=== PATIENT | male | born 1955 | race Caucasian/White ===

== ENCOUNTER → 2023-06-25 08:02 | Outpatient (REF) | payer BC, SELFPAY | LOC: HWRAD 08:02 | PROVIDERS: ATTENDING PHYSICIAN Internal Medicine Endocrinology, Diabetes & Metabolism; FAMILY PHYSICIAN Internal Medicine | DX: E11.9 Type 2 diabetes mellitus without complications (principal) | CPT/HCPCS: 76536 ==

== ENCOUNTER 2023-07-08 17:22 | Emergency (ER) | payer BC, SELFPAY ==
[2023-07-08 17:28] VITALS: BP 187/99
[2023-07-08 18:24] LABS: Hematocrit 40.2 % (39.0-52.0); Hemoglobin 13.8 g/dL (13.0-18.0); Mean Corp Hgb Conc. 34.3 g/dL (33.0-37.0); Mean Corpuscular Hgb 29.6 pg (27.0-31.0); Mean Corpuscular Volume 86.3 fL (80.0-94.0); Mean Platelet Volume 9.7 fL (7.4-10.4); Platelet Count 204 10^3/uL (130-400); Red Blood Cell Count 4.66 10^6/uL (4.70-6.10); Red Cell Dist. Width 13.2 % (11.5-14.5); White Blood Cell Count 7.7 10^3/uL (4.8-10.8)
--- NOTE | 2023-07-08 18:39 | ED.GENMED ---
History of Present Illness
General
Chief Complaint: Cardiac Symptoms
Source: patient
Exam Limitations: none
Time Seen by Provider: 07/08/23 18:17
Nursing documentation reviewed up to this point in time: agreed with
Travel History
Have you had any contact with someone who has COVID-19?: No
Do you have any symptoms of coronavirus? Fever > 100 degrees, chills, cough, shortness of breath, sore throat, loss of taste or smell, muscle aches, or headache?: No
History of Present Illness
History of Present Illness:
67-year-old male presents to the ER for evaluation of chest pain. Patient reports he was snowblowing heavy snow on Sunday and felt great while doing that however later that night he felt some chest heaviness/tightness. He reports off-and-on for
the past week he has noticed his chest has felt intermittently tight but he denies any shortness of breath. He does feel little discomfort less tightness/heaviness in his chest with taking a deep breath. Today he was getting changed and noticed
that his chest look like it was at the incisional site of his bypass which she had in 2019. With this along with his intermittent chest heaviness this week he presented to the ER. He reports this does not feel like a chest pain. He
denies any associate nausea vomiting. No prior history of DVT PE. He is on Eliquis for afib.He has not missed a dose.
He denies any lower extremity swelling. He denies any recent trauma fever or chills.Currently pt denies shortness of breath. He feels a slight pressure/heaviness to center of chest with taking a deep breath.
Past History
Past History
ED Past Medical History: Arrthythmia, CAD, HTN, Hypercholesterolemia and IDDM
ED Past Surgical History: Appendectomy, Cardiac, Orthopedic, Tonsilectomy and Other (Retinal repair. Cataract surgery. Closed-loop bowel obstruction)
Social History
Tobacco: Non-smoker
Drug: None
Personal:
Living: with family
Employment: Employed
Family History
Family History: Other
Review of Systems
Review of Systems
All Other Systems: ROS reviewed and negative except as documented in HPI and ROS
Constitutional: Denies fever, fatigue or chills
EENT: Reports no symptoms
Respiratory: Denies cough, hemoptysis or trouble breathing
Cardiac: Reports other (Chest heaviness/tightness)
ABD/GI: Reports no symptoms; Denies abdominal pain, nausea or vomiting
Musculoskeletal: Reports no symptoms
Skin: Reports no symptoms
Neurological: Reports no symptoms
Psychiatric: Reports no symptoms
Phy Exam
General Physical Exam
General Presentation: no apparent distress
General age: appears stated age
General Skin: warm and dry
General Habitus: normal
General Mental: alert
General Hydration: appears well hydrated
Cardiovascular Exam
Cardiovascular Exam: regular rate/rhythm, no murmur and normal peripheral pulses
Pulmonary Exam
Pulmonary Exam: lungs clear, no respiratory distress and other (chest non tender old vertical incision to anterior chest no other deformity mild b/lGynecomastia)
Neurological Exam
Neurological Exam: alert and oriented x3
[place] Coma Scale
Eye Opening: Spontaneous
Verbal Response: Oriented
Motor Response: Obeys Commands
GCS Total Score: 15
Musculoskeletal Exam
Musculoskeletal Exam: full ROM
Skin Exam
Skin Exam: normal color and warm/dry
Psychiatric Exam
Psychiatric Exam: normal mood/affect
Course
Orders/Labs/Results
Orders:
Orders
07/08/23 17:23
EKG [Electrocardiogram (*1)] Urgent
Reason for Study: Chest Pain
EKG- Treatment ONCE
07/08/23 18:16
Complete Blood Count/No Diff Urgent
Comprehensive Metabolic Panel Urgent
Troponin I Urgent
07/08/23 18:38
Chest [CR Chest - 2 Views ] Urgent
Comment:
Reason For Exam: cp
07/08/23 19:07
DDimer [D-Dimer] Urgent
Abnormal Lab Results
07/08/23
18:16
RBC 4.66 L 10^6/uL
(4.70-6.10)
BUN 22 H mg/dl
(9-20)
Glucose 173 H mg/dl
(70-99)
07/08/23 18:16
07/08/23 18:16
Vital Signs
Initial and Last Documented VS:
Initial Vital Signs
Temp Pulse Resp BP Pulse Ox
97.6 F 73 17 187/99 99
07/08/23 17:28 07/08/23 17:28 07/08/23 17:28 07/08/23 17:28 07/08/23 17:28
Last Documented Vital Signs
Temp Pulse Resp BP Pulse Ox
97.6 F 66 16 123/45 97
07/08/23 17:28 07/08/23 21:00 07/08/23 21:00 07/08/23 21:00 07/08/23 19:09
Sales Enablement Specialist consulted with Physician
Sales Enablement Specialist consulted with physician?: Yes
Name of Physician Consulted: sylwia
MDM/Problems Addressed
Differential Diagnosis Includes:
not limited to: Muscular chest pain less likely ACS, less likely PE
MDM/Problems Addressed:
Patient is a 67-year-old male with past medical history of A-fib CAD bypass surgery insulin-dependent diabetes on Eliquis presented to the ER for evaluation. Patient was using a snowblower several days ago and was fine however after that noticed
chest soreness worse when he took a deep breath. Today he was looking his chest and thought it was move 'caved int.' PT had CABG yrs ago.
Pt presents awake alert in no acute distress. He denies any actual shortness of breath. He is nontachycardic nontachypneic nonhypoxic.
Patient has had symptoms off and on for the past several days, no acute findings on EKG and normal troponin. Patient less likely with PE as he is anticoagulated for A-fib and has a normal D-dimer. Patient reports he had 1 episode of A-fib since
having bypass surgery and pt is anticoagulated.
Pt however has been in NSR here in the ER. Pt in no acute distress work up un-remarkable. Likely musculoskeletal. Case discussed ED physician will DC home
*Radiology
Radiology exam reviewed: radiology read reviewed
*Pulse Oximetry
Patient hypoxic: no
*EKG
Interpreted by ED Provider?: Yes
Heart Rate: 75
Rate: normal
Rhythm: sinus
Ischemia: non-specific ST changes
*Critical Care Note
Total Time (30-74mins, 75-104mins- exclusive of procedures): Not Applicable
ED Attending Note
-
Portions of this chart may have been created with voice recognition software.� Occasional wrong word or��sound alike� substitutions may have occurred due to the inherent limitations of voice recognition software.
Discharge Plan
Departure
Patient Disposition: Home (Routine Discharge)
Date of Disposition: 07/08/23
Time of Disposition: 21:12
Patient with high blood pressure during this ER visit?: Yes
Condition: Fair
Covid-19: Not Applicable
Discharge Problem:
Chest pain
Instructions: Chest Pain PCP Follow Up, BLOOD PRESSURE
Prescriptions:
No Action
atorvastatin 40 MG tablet
40 mg PO QPM
dorzolamide-timolol (PF) [Cosopt (PF)] 1 EACH dropperette
1 drp BOTH EYES BID
brimonidine [Alphagan P] 10 ML drops
1 drp BOTH EYES BID
Patient Comments:
tafluprost (PF) [Zioptan (PF)] 1 EACH dropperette
1 ea BOTH EYES HS
multivitamin with folic acid [Tab-A-Jessica] 1 TABLET tablet
1 tab PO DAILY Qty: 0
Eliquis 5 MG tablet
5 mg PO BID Qty: 60 3RF
metformin 1,000 MG tablet
1,000 mg PO BID
cyclosporine [Restasis] 10 DROPS dropperette
1 drp BOTH EYES BID
insulin glargine [Lantus Solostar U-100 Insulin] 300 UNITS/3 ML insulin pen
20 units SC HS
metoprolol tartrate 50 MG tablet
100 mg PO HS
iyfwgdedqt-ayxqmbpzvglyb-xllh 1 TAB tablet
1 tab PO Q4HPRN PRN (Reason: severe headache/migraine) Qty: 8 0RF
ascorbic acid (vitamin C) [Vitamin C] 500 mg Tablet
500 mg PO DAILY
insulin lispro [Humalog U-100 Insulin] 100 unit/mL Solution
1 sliding scale dose SC MEALS
Patient Comments:
usually about 15 units
cholecalciferol (vitamin D3) [Vitamin D3] 125 mcg (5,000 unit) Tablet
125 mcg PO DAILY
vitamin E
1,000 units PO DAILY
Referrals:
Kevni Martinez DO [Family Provider] -
Activity Restrictions/Additional Instructions:
As discussed follow-up with family doctor in the next several days for reevaluation. You may take Tylenol 650 mg every 4-6 hours as needed. Return if any worsening of symptoms if worsening pain shortness of breath or any further concerns.
Chest pain is likely muscular.
Interventions
Interventions:
*Risk Screen - Suicide Last Done: 07/08/23 17:25
*General Assessment Last Done: 07/08/23 17:25
*Neglect/Abuse Screening Last Done: 07/08/23 17:25
ED- Fall Risk Assessment Last Done: 07/08/23 19:14
*ED COVID-19 Vaccine History Last Done: 07/08/23 17:25
*Nursing Disposition Last Done: 07/08/23 21:42
ED- Pulmonary Assessment Last Done: 07/08/23 19:19
ED- Cardiac Assessment Last Done: 07/08/23 19:19
Discharge Date and Time
Discharge Date/Time: 07/08/23 21:42
[2023-07-08 18:41] LABS: ALT (SGPT) 28 U/L (0-50); AST (SGOT) 29 U/L (17-59); Albumin 3.9 g/dl (3.5-5.0); Alkaline Phosphatase 67 U/L (38-126); Blood Urea Nitrogen 22 mg/dl (9-20); Calcium 9.2 mg/dl (8.4-10.2); Carbon Dioxide 27 mmol/L (22-30); Chloride 104 mmol/L (98-107); Glucose 173 mg/dl (70-99); Sodium 135 mmol/L (135-145); Total Bilirubin 0.5 mg/dl (0.2-1.3); Total Protein 6.4 g/dl (6.3-8.2); eGFR > 60.00
[2023-07-08 18:48] LABS: Troponin I < 0.012 ng/ml
[2023-07-08 19:09] VITALS: BP 143/71
--- NOTE | 2023-07-08 19:21 | EDRN ---
Pt says he has had intermittent chest pressure that lasts 'less than a breath' since Sunday after he shoveled snow. Pt denies chest pressure now. No sob, abd pain, n/v, weakness, dizziness. Pt says he is here because his was concerned when
he mentioned it to her and she said last time he ended up having a cabg. Pt fell today coming out of a restaurant stating it was a new place and he was not familiar with the layout. Pt missed a step. Pt denies injury from fall stating he is not
here for that reason tonight.
[2023-07-08 19:29] LABS: D-Dimer < 0.27 ug/mlFEU (0.00-0.50)
[2023-07-08 20:17] VITALS: BP 138/75
[2023-07-08 21:00] VITALS: BP 123/45
== END 2023-07-08 21:42 | disposition home or self-care (01) ==
LOC: EMR 17:22
PROVIDERS: Nurse Practitioner; EMERGENCY PHYSICIAN Emergency Medicine; FAMILY PHYSICIAN Internal Medicine
DX: R07.89 Other chest pain (principal); I25.10 Atherosclerotic heart disease of native coronary artery without angina pectoris; I10 Essential (primary) hypertension; E78.00 Pure hypercholesterolemia, unspecified; E11.9 Type 2 diabetes mellitus without complications
CPT/HCPCS: 99283; 71046; 80053; 84484; 85027; 85379; 93005

== ENCOUNTER → 2023-11-09 07:21 | Outpatient (REF) | payer BC, SELFPAY | LOC: RCS 07:21 | PROVIDERS: ATTENDING PHYSICIAN Internal Medicine | DX: R07.89 Other chest pain (principal) | CPT/HCPCS: 93017; 93350 ==

== ENCOUNTER 2023-11-19 07:22 | Day surgery (SDC) | payer BC, SELFPAY ==
[2023-11-19] VITALS (9 sets, daily range): BP systolic 123–186; BP diastolic 60–100; BMI 26.1
[2023-11-19] MEDS: NSS 241 ML IV (07:56)
[2023-11-19 11:24] LABS: Glucose - Point of Care 118 mg/dl (70-99)
--- NOTE | 2023-11-19 11:27 | ITS.CL.CATH ---
[employer] - Catheterization
Cardiac Catheterization
Procedure Report:
CARDIAC CATHETERIZATION REPORT
Date of Procedure: 11/19/2023
Referring: Joe Brandt M.D., Ph.D.
INDICATION: Abnormal stress test.
PROCEDURE:
1. Left heart catheterization.
2. Coronary angiography.
3. Bypass angiography.
ACCESS:
6 [place] left radial artery.
CATHETERS:
1. 5 [place] ANN.
2. 5 [place] JL 4.
3. 5 [place] JR4.
HEMODYNAMIC DATA
Weight (kg): 80.2
AO (s/d/x, mmHg): 166/77/118
LV (s/x mmHg): 167/12 (A wave to 27)
LEFT VENTRICULOGRAPHY: Not performed.
CORONARY ANGIOGRAPHY
Dominance: Right.
Left Main: Short, bifurcating vessel. There is a 20-30% tapering at the distal aspect of the vessel.
LAD: Small size, diffusely diseased vessel giving rise to 1 diagonal. There is a 90% lesion in the ostium of the vessel. The distal LAD is a small, diffusely diseased vessel and supplied by patent VELASQUEZ graft. The small first diagonal is
supplied by a sequential SVG.
Ramus: Congenitally absent.
Circumflex: Normal size, nondominant vessel giving rise to 3 obtuse marginals. OM1 and OM 2 are small, sub-1 mm vessels. OM 3 bifurcates into an upper and lower branch. The upper branch is a relatively small vessel supplying the mid lateral
wall. The lower branch of OM 3 is chronically totally occluded (seen on prior cardiac catheterization). Collaterals are observed supplying the lower branch of OM 3.
RCA: Normal size, dominant vessel with a significant posterolateral arcade. The ostium of the RPDA is chronically totally occluded. The right posterolateral branch is chronically totally occluded in its midsection. The right posterolateral
branch is supplied by collaterals from the distal LAD/small diagonals. The RPDA is supplied by a patent sequential SVG and is diffusely diseased throughout.
BYPASS GRAFT ANGIOGRAPHY
VELASQUEZ to LAD: Normal size graft with end-to-side anastomosis to the distal LAD. There is no evidence of stenosis or graft degeneration. The distal LAD supplied by the VELASQUEZ graft is a <1 mm vessel with diffuse disease. Collaterals are observed
from the bypassed vessel to the lower branch of OM 3 and the right posterolateral branch
SVG to D1 to RPDA: Normal size graft with [id number]-[id number] anastomosis with the first diagonal and end-to-side anastomosis to the mid RPDA.
INTERVENTION(S)
None.
Closure Device: Vascular band.
Radiation (mGy): 433.89
DAP (cm2.Gy): 37.4453
Fluoroscopy time (minutes): 5.0
Sedation time (minutes): 33
CONCLUSIONS
1. 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
posterolateral branch status post prior CABG (patent VELASQUEZ to LAD, patent sequential SVG to D1 to RPDA) revealing diffusely diseased, small distal LAD, a small first diagonal and a diffusely diseased RPDA, with left to left collaterals (LAD to lower
branch of OM 3) and a left to right collaterals (LAD to RPL).
2. Normal filling pressures (LVEDP = 12 mmHg at 80.2 kg) with evidence of diastolic dysfunction (A wave to 27 mmHg).
RECOMMENDATIONS:
1. Expectant management after cardiac catheterization via left radial approach.
2. Limited weight bearing on the left wrist for one week.
3. Aggressive risk factor modification.
4. Guideline directed medical therapy as hemodynamics will tolerate.
5. Unfortunately, there are no lesions within the coronary circulation that are amenable to PCI.
Copy to: Joe Brandt M.D., Ph.D., Kevin Martinez D.O.
Cole Hoang DO, FACC, FACP
[2023-11-19 12:27] LABS: Glucose - Point of Care 225 mg/dl (70-99)
== END 2023-11-19 14:00 | disposition home or self-care (01) ==
LOC: CATH 07:22
PROVIDERS: ATTENDING PHYSICIAN Internal Medicine Cardiovascular Disease; FAMILY PHYSICIAN Internal Medicine
DX: I25.10 Atherosclerotic heart disease of native coronary artery without angina pectoris (principal); R94.39 Abnormal result of other cardiovascular function study; I25.82 Chronic total occlusion of coronary artery; Z95.1 Presence of aortocoronary bypass graft; I48.0 Paroxysmal atrial fibrillation; I10 Essential (primary) hypertension; E78.00 Pure hypercholesterolemia, unspecified; E11.9 Type 2 diabetes mellitus without complications; Z79.01 Long term (current) use of anticoagulants; Z79.84 Long term (current) use of oral hypoglycemic drugs; Z79.4 Long term (current) use of insulin; Z79.82 Long term (current) use of aspirin
CPT/HCPCS: 82962; 93459; C1894; Q9967

== ENCOUNTER → 2023-12-27 12:49 | Outpatient (REF) | payer BC, SELFPAY | LOC: HWRCS 12:49 | PROVIDERS: ATTENDING PHYSICIAN Internal Medicine; FAMILY PHYSICIAN Internal Medicine | DX: I48.0 Paroxysmal atrial fibrillation (principal); I25.10 Atherosclerotic heart disease of native coronary artery without angina pectoris; I49.1 Atrial premature depolarization; I65.23 Occlusion and stenosis of bilateral carotid arteries | CPT/HCPCS: 93306 ==

== ENCOUNTER → 2024-01-04 10:23 | Outpatient (REF) | payer BC, SELFPAY | LOC: HWRAD 10:23 | PROVIDERS: ATTENDING PHYSICIAN Internal Medicine | DX: T81.89XA Other complications of procedures, not elsewhere classified, initial encounter (principal) | CPT/HCPCS: 71120 ==

== ENCOUNTER → 2024-01-31 06:55 | Outpatient (REF) | payer BC, SELFPAY | LOC: RAD 06:55 | PROVIDERS: ATTENDING PHYSICIAN Internal Medicine; FAMILY PHYSICIAN Internal Medicine | DX: I65.23 Occlusion and stenosis of bilateral carotid arteries (principal); Z95.1 Presence of aortocoronary bypass graft; I25.10 Atherosclerotic heart disease of native coronary artery without angina pectoris; I48.0 Paroxysmal atrial fibrillation | CPT/HCPCS: 93880 ==

== ENCOUNTER 2024-06-23 06:17 | Day surgery (SDC) | payer BC, SELFPAY ==
[2024-06-23 07:23] LABS: Glucose - Point of Care 170 mg/dl (70-99)
== END 2024-06-23 08:41 | disposition home or self-care (01) ==
LOC: GI 06:17
PROVIDERS: ATTENDING PHYSICIAN Internal Medicine Gastroenterology
DX: Z12.11 Encounter for screening for malignant neoplasm of colon (principal); Z80.0 Family history of malignant neoplasm of digestive organs; D12.0 Benign neoplasm of cecum; D12.2 Benign neoplasm of ascending colon; K64.8 Other hemorrhoids
CPT/HCPCS: 45385; 88305; 82962